=== PATIENT | male | born 1960 ===

== ENCOUNTER 2017-03-09 10:21 | Emergency (ER) | payer MEDICAID ==
[2017-03-09 10:27] VITALS: TEMP 97.6
--- NOTE | 2017-03-09 10:50 | C.PDOC ---
History Of Present Illness 56 y/o male presents to the ED with complains of back pain/sciatica exacerbation x3 days. Pain is at left lower back radiating to side, left thigh and calf; worse with positional changes. Pt has had pain for many years, not on chronic pain medications due to probation drug screening. Pt denies weakness, numbness, incontinence, or any other complaints. Pt requesting unknown shot "they gave me last time" at [place]. Chief Complaint (Nursing): Lower Extremity Problem/Injury History Per: Patient History/Exam Limitations: no limitations Onset/Duration Of Symptoms: Days, Intermittent Episodes Current Symptoms Are (Timing): Still Present Quality Of Discomfort: "Pain" Severity: Moderate Previous Symptoms: Chronic Pain Associated Symptoms: None Exacerbating Factor(s): Movement Recent travel outside of the [place]: No Past Medical History Reviewed: Historical Data, Nursing Documentation, Vital Signs Vital Signs: Last Vital Signs Temp 97.6 F 03/09/17 10:27 Pulse 87 03/09/17 11:49 Resp 18 03/09/17 11:49 BP 130/88 03/09/17 11:49 Pulse Ox 96 03/09/17 11:49 - Medical History PMH: Asthma Surgical History: Tonsillectomy - [facility] Procedures EXCISION OF RIGHT SPERMATIC CORD, OPEN APPROACH (07/11/16) REPAIR ABDOMINAL WALL, OPEN APPROACH (07/11/16) REPAIR RIGHT INGUINAL REGION, OPEN APPROACH (07/11/16) Family History: States: Unknown Family Hx - Social History Hx Tobacco Use: Yes Hx Alcohol Use: No Hx Substance Use: No - Immunization History Hx Tetanus Toxoid Vaccination: No Hx Influenza Vaccination: No Hx Pneumococcal Vaccination: No Review Of Systems Except As Marked, All Systems Reviewed And Found Negative. Genitourinary: Negative for: Incontinence Musculoskeletal: Positive for: Back Pain (left sided radiating to to left thigh and calf) Neurological: Negative for: Weakness, Numbness Physical Exam - Physical Exam Appears: Non-toxic, In Acute Distress (uncomfortable) Skin: Warm, Dry, No Rash Head: Atraumatic, Normacephalic Back: No Vertebral Tenderness, Decreased ROM, No Muscle Spasm, No Paraspinal Tenderness Extremity: Normal ROM Extremity: Bilateral: Atraumatic Neurological/Psych: Oriented x3, Normal Motor, Normal Sensation Gait: Steady ED Course And Treatment O2 Sat by Pulse Oximetry: 98 (room air) Pulse Ox Interpretation: Normal Progress - Re-Evaluation Re-evaluation Note: 03/09/17 10:45 NO PRIOR RECORD ON [facility] 03/09/17 10:58 [facility] REFERR[facility] INFO GIVEN - Data Reviewed Data Reviewed: Old records, Other Medical Decision Making Medical Decision Making: Prior records reviewed, pt received toradol at [place]. Pt provided [facility] physician letter, signed and given to patient. Pt advised of state law and [facility] policy regarding chronic pain management. Pt advised to see PMD and pain management for group home care. Disposition Counseled Patient/Family Regarding: Diagnosis, Need For Followup, Rx Given - Disposition Referrals: [facility] [Outside] [facility] [Outside] [facility] [Other] Disposition: HOME/ ROUTINE Disposition Time: 10:58 Condition: GOOD Prescriptions: Cyclobenzaprine [Flexeril] 10 mg PO TID #15 tab Lidocaine 5% [Lidoderm] 1 ea TD PRN PRN #10 patch PRN Reason: Pain, Moderate (4-7) Ibuprofen [Motrin] 600 mg PO Q6 #30 tab Gabapentin [Neurontin] 300 mg PO TID #30 cap Instructions: Chronic Pain (ED), Sciatica (ED) Forms: Work Excuse - Clinical Impression Clinical Impression: Chronic sciatica, Acute exacerbation of chronic low back pain - Scribe Statement The provider has reviewed the documentation as recorded by the Emmanuel garcias Provider Attestation: All medical record entries made by the Emmanuel were at my direction and personally dictated by me. I have reviewed the chart and agree that the record accurately reflects my personal performance of the history, physical exam, medical decision making, and the department course for this patient. I have also personally directed, reviewed, and agree with the discharge instructions and disposition.
[2017-03-09] MEDS ORDERED: Lidocaine 5% Patch TD STA (10:55)
[2017-03-09] MEDS ORDERED: Lidocaine 5% Patch TD ONE (11:06)
[2017-03-09 11:51] VITALS: BP 130/88; PULSE 87; RESP 18
[2017-03-11 07:28] VITALS: O2SAT 98
== END 2017-03-09 11:53 | disposition home or self-care (01) ==
LOC: EDBD → C.ER 10:21
DX: M54.42 Lumbago with sciatica, left side (principal)
CPT/HCPCS: 96372; 99284; J1885; J8540

== ENCOUNTER 2017-03-17 19:15 | Emergency (ER) | payer MEDICAID ==
[2017-03-17 19:33] VITALS: BP 137/88; PULSE 84; RESP 20; TEMP 98.3; O2SAT 97
[2017-03-17] MEDS ORDERED: Dexamethasone 4 mg/1 ml IM STA ×2 (19:51→20:08)
[2017-03-17] MEDS ORDERED: Lidocaine 5% Patch TD STA (19:53)
--- NOTE | 2017-03-17 19:56 | C.PDOC ---
History Of Present Illness 56 y.o male with history of chronic back pain complains of lower right back pain which radiates down the leg. 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 Denies any urinary or bowel incontinence, new numbness or weakness, abdominal pain, neck pain, chest pain, SOB. Patient was seen in ED last week and given Rx he states he was unable to get patches secondary to insurance and has yet to follow up with PMD. Patient is in [facility] and needs letter if given any narcotics. Time Seen by Provider: 03/17/17 19:40 Chief Complaint (Nursing): Lower Extremity Problem/Injury History Per: Patient History/Exam Limitations: no limitations Onset/Duration Of Symptoms: Other Current Symptoms Are (Timing): Still Present Quality Of Discomfort: "Pain" Severity: Moderate Pain Scale Rating Of: 4 Previous Symptoms: Chronic Pain Associated Symptoms: None Exacerbating Factor(s): Nothing Recent travel outside of the [place]: No Past Medical History Reviewed: Historical Data, Nursing Documentation, Vital Signs Vital Signs: Last Vital Signs Temp 98.3 F 03/17/17 19:31 Pulse 84 03/17/17 19:31 Resp 20 03/17/17 19:31 BP 137/88 03/17/17 19:31 Pulse Ox 97 03/17/17 20:17 - Medical History PMH: Asthma Surgical History: Tonsillectomy - [facility] Procedures EXCISION OF RIGHT SPERMATIC CORD, OPEN APPROACH (07/11/16) REPAIR ABDOMINAL WALL, OPEN APPROACH (07/11/16) REPAIR RIGHT INGUINAL REGION, OPEN APPROACH (07/11/16) Family History: States: Unknown Family Hx - Social History Hx Tobacco Use: Yes Hx Alcohol Use: No Hx Substance Use: No - Immunization History Hx Tetanus Toxoid Vaccination: No Hx Influenza Vaccination: No Hx Pneumococcal Vaccination: No Review Of Systems Except As Marked, All Systems Reviewed And Found Negative. Cardiovascular: Negative for: Chest Pain Respiratory: Negative for: Shortness of Breath Gastrointestinal: Negative for: Abdominal Pain Genitourinary: Negative for: Incontinence Musculoskeletal: Positive for: Back Pain. Negative for: Neck Pain Neurological: Negative for: Weakness, Numbness Physical Exam - Physical Exam Appears: Non-toxic, Other (uncomfortable; in pain) Skin: Warm, Dry Head: Atraumatic, Normacephalic Neck: Normal ROM, Supple Chest: Symmetrical Cardiovascular: Rhythm Regular Respiratory: Normal Breath Sounds, No Rales, No Rhonchi, No Wheezing Back: No CVA Tenderness, No Vertebral Tenderness, No Decreased ROM, Paraspinal Tenderness (paralumbar) Extremity: Normal ROM Neurological/Psych: Oriented x3, Normal Speech, Normal Cognition, Normal Motor, Normal Sensation Gait: Steady ED Course And Treatment O2 Sat by Pulse Oximetry: 97 (RA) Pulse Ox Interpretation: Normal Medical Decision Making Medical Decision Making: Impression: 56 y/o male with chronic back pain and acute flare up Plan: * Decadron * Lidoderm Prior record reviewed patient was seen last week 03/09 for similar symptoms and treated with Toradol in ED. Rx given for Flexeril, lidoderm, motrin and gabapentin No record on [facility] Progress: Decadron IM and Lidoderm patch applied in ED. Patient remained well and was laying comfortably on stretcher during ED evaluation. Fill out court form. Patient advised to call athletic coordinator service to assist with finding pain management or to follow up with PCP Dr Newman for chronic back pain. Explain the ED does not provide continued care for chronic pain. Patient was ambulatory with steady gait without assistance or severe pain. Disposition Counseled Patient/Family Regarding: Diagnosis, Need For Followup, Rx Given - Disposition Referrals: [facility] [Outside] [facility] [place] [Outside] Shaik Siddiqui MD [Staff Provider] - Disposition: HOME/ ROUTINE Disposition Time: 19:35 Condition: STABLE Additional Instructions: Please call athletic coordinator service for any assistance with finding spine doctor or pain management [phone]. Follow up with your primary medical doctor DR Siddiqui for further evaluation. Return to the emergency department at any time if symptoms persist or worsen. Prescriptions: Prednisone 50 mg PO DAILY #5 tablet Instructions: Lumbar Radiculopathy (ED) - POA Present On Arrival: None - Clinical Impression Clinical Impression: Acute exacerbation of chronic low back pain, Lumbar radiculopathy - PA / STRUCTURAL IRON ERECTOR / Resident Statement MD/DO has reviewed & agrees with the documentation as recorded. - Scribe Statement The provider has reviewed the documentation as recorded by the Scribe Mary Wright All medical record entries made by the Scribe were at my direction and personally dictated by me. I have reviewed the chart and agree that the record accurately reflects my personal performance of the history, physical exam, medical decision making, and the department course for this patient. I have also personally directed, reviewed, and agree with the discharge instructions and disposition.
[2017-03-17] MEDS ORDERED: Lidocaine 5% Patch TD ONE (20:03)
== END 2017-03-17 20:38 | disposition home or self-care (01) ==
LOC: EDBD → C.ER 19:15
DX: G89.29 Other chronic pain (principal); M54.5 Low back pain; M54.16 Radiculopathy, lumbar region
CPT/HCPCS: 96372; 99284; J1100

== ENCOUNTER 2017-11-06 09:09 | Inpatient (IN) | payer MEDICAID ==
--- NOTE | 2017-11-06 10:28 | C.PDOC ---
History Of Present Illness 57 year old male with PMHx of asthma presents, and ventral hernia presents to the ED for evaluation of abdominal pain. Patient states he was seen by who told him he had an abdominal wall hernia and was referred here for further evaluation and possible admission. Patient has an abdominal wall hernia that is tender to palpation. Patient denies fever, nausea, vomit, diarrhea, dysuria, hematuria, back pain. Time Seen by Provider: 11/06/17 09:46 Chief Complaint (Nursing): Medical Clearance History Per: Patient History/Exam Limitations: no limitations Onset/Duration Of Symptoms: Days Current Symptoms Are (Timing): Still Present Severity: Mild Reports Recently: Treated By A Physician (Dr. Anderson) Recent travel outside of the [place]: No Additional History Per: Patient Past Medical History Reviewed: Historical Data, Nursing Documentation, Vital Signs Vital Signs: Last Vital Signs Temp 97.8 F 11/06/17 09:18 Pulse 76 11/06/17 09:18 Resp 18 11/06/17 09:18 BP 116/79 11/06/17 09:18 Pulse Ox 96 11/06/17 11:37 - Medical History PMH: Asthma Denies: Chronic Kidney Disease Surgical History: Tonsillectomy - [facility] Procedures EXCISION OF RIGHT SPERMATIC CORD, OPEN APPROACH (07/11/16) REPAIR ABDOMINAL WALL, OPEN APPROACH (07/11/16) REPAIR RIGHT INGUINAL REGION, OPEN APPROACH (07/11/16) Family History: States: Unknown Family Hx - Social History Hx Tobacco Use: Yes Hx Alcohol Use: No Hx Substance Use: No - Immunization History Hx Tetanus Toxoid Vaccination: No Hx Influenza Vaccination: No Hx Pneumococcal Vaccination: No Review Of Systems Constitutional: Negative for: Fever, Chills Cardiovascular: Negative for: Chest Pain Respiratory: Negative for: Cough, Shortness of Breath Gastrointestinal: Positive for: Abdominal Pain. Negative for: Nausea, Vomiting Genitourinary: Negative for: Dysuria, Hematuria Musculoskeletal: Negative for: Back Pain Skin: Negative for: Rash Neurological: Negative for: Weakness, Numbness Physical Exam - Physical Exam Appears: Non-toxic, Other (Uncomfortable) Skin: Normal Color, Warm, Dry Head: Atraumatic, Normacephalic Nose: No Discharge, No Deformity Oral Mucosa: Moist Neck: Normal ROM, Supple Chest: Symmetrical Cardiovascular: Rhythm Regular, No Murmur Respiratory: Normal Breath Sounds, No Rales, No Rhonchi, No Wheezing Gastrointestinal/Abdominal: Soft, Tenderness (mid abdomen), No Distention, Hernia (abdominal wall, mid abdomen ) Extremity: Normal ROM, No Pedal Edema, No Calf Tenderness, No Deformity, No Swelling Neurological/Psych: Oriented x3, Normal Speech, Normal Cognition Gait: Steady ED Course And Treatment - Laboratory Results Result Diagrams: 11/06/17 10:40 11/06/17 10:40 O2 Sat by Pulse Oximetry: 96 (On RA) Pulse Ox Interpretation: Normal Medical Decision Making Medical Decision Making: Impression : 57 y/o male with abdominal wall hernia. Plan: * Blood work * CXR * IV fluids * EKG Dr. Anderson called and spoke with nurse in charge of patient, Dr. Anderson gave a verbal admission order for the patient. Disposition - Disposition Disposition: HOSPITALIZED Disposition Time: 11:36 Condition: STABLE - Clinical Impression Clinical Impression: Abdominal pain, Ventral hernia - Scribe Statement The provider has reviewed the documentation as recorded by the Scribe Dennys Osorio All medical record entries made by the Scribe were at my direction and personally dictated by me. I have reviewed the chart and agree that the record accurately reflects my personal performance of the history, physical exam, medical decision making, and the department course for this patient. I have also personally directed, reviewed, and agree with the discharge instructions and disposition. Decision To Admit - Pt Status Changed To: Hospital Disposition Of: Inpatient - Admit Certification Admit to Inpatient:: After my assessment, the patient will require hospitalization for at least two midnights. This is because of the severity of symptoms shown, intensity of services needed, and/or the medical risk in this patient being treated as an outpatient. - InPatient: Physician Admission Certification: I certify that this patient requires 2 or more midnights of care for the following reason:: needs surgery - . Bed Request Type: Regular Patient Diagnosis: Abdominal pain, Ventral hernia
[2017-11-06] MEDS: Sodium Chloride 0.9% 1,000 ML IV SCH ×2 (10:37→21:30)
[2017-11-06 10:47] LABS: BASO # 0.1 K/uL (0.0-0.2); BASO % 0.6 % (0.0-2.0); EOS # 0.3 K/uL (0.0-0.7); EOS % 3.5 % (0.0-4.0); HEMATOCRIT 45.7 % (35.0-51.0); LYMPH # 2.1 K/uL (1.0-4.3); LYMPH % 25.6 % (20.0-40.0); MEAN CELL VOLUME 92.5 fL (80.0-94.0); MEAN CORPUSCULAR HEMOGLOBIN 32.3 pg (27.0-31.0); MEAN CORPUSCULAR HGB CONC 34.9 g/dL (33.0-37.0); MEAN PLATELET VOLUME 10.1 fL (7.2-11.7); MONO # 0.6 K/uL (0.0-0.8); MONO % 7.5 % (0.0-10.0); NRBC % 0.1 % (0.0-2.0); RED CELL DISTRIBUTION WIDTH 13.5 % (11.5-14.5); WHITE BLOOD COUNT 8.2 K/uL (4.8-10.8)
[2017-11-06 11:00] LABS: BILIRUBIN,TOTAL 1.3 mg/dL (0.2-1.3); CALCIUM 8.2 mg/dl (8.6-10.4); GFR AFRICAN-AMERICAN > 60; GLUCOSE,RANDOM 93 mg/dL (75-110)
[2017-11-06 11:07] LABS: ALB/GLOB RATIO 1.5 (1.0-2.1); ALKALINE PHOSPHATASE 48 U/L (38-126); ALT/SGPT 25 U/L (21-72); AST/SGOT 32 U/L (17-59); BLOOD UREA NITROGEN 9 mg/dL (9-20); CARBON DIOXIDE 24 mmol/L (22-30); CHLORIDE 105 mmol/L (98-107); POTASSIUM 4.6 mmol/L (3.6-5.2); SODIUM 135 mmol/L (132-148); TOTAL PROTEIN 6.4 g/dL (6.3-8.3)
[2017-11-06] MEDS ORDERED: ceFAZolin IV 2 gm in Dextrose 2 GM/50 ML BAG IVPB ONE (12:17)
[2017-11-06] MEDS ORDERED: Midazolam 2 MG/2 ML VIAL ONE (12:34)
[2017-11-06] MEDS ORDERED: Lactated Ringer's 1,000 ML IV ONE (12:35)
[2017-11-06] MEDS ORDERED: Propofol 10 mg/ml Inj (20 ML) ONE ×2 (12:35→13:01)
[2017-11-06] MEDS ORDERED: Bupivacaine HCl 0.5% PF (10 ml) Inj ONE (12:45)
[2017-11-06] MEDS ORDERED: Succinylcholine Chloride 20 mg/ml Syr (5 ml) IV ONE (13:01)
[2017-11-06] MEDS: HYDROmorphone 0.5 mg/0.5 ml ISec IVP PRN ×2 (13:50→14:30)
--- NOTE | 2017-11-06 15:57 | RAD ---
HISTORY: SOB COMPARISON: Chest radiograph dated 07/11/2016. TECHNIQUE: Chest PA and lateral FINDINGS: LUNGS: No active pulmonary disease. PLEURA: No significant pleural effusion identified. No pneumothorax apparent. CARDIOVASCULAR: Normal. OSSEOUS STRUCTURES: No significant abnormalities. VISUALIZED UPPER ABDOMEN: Normal. OTHER FINDINGS: None. IMPRESSION: No active disease.
[2017-11-06] MEDS: Oxycodone/Acetaminophen 5/325 mg Tab PO PRN (20:03)
[2017-11-06 20:48] VITALS: RESP 20
[2017-11-06] MEDS: ceFAZolin 1,000 MG in Dextrose 5% In Water 50 ML IVPB SCH (21:34)
[2017-11-07 00:13] VITALS: O2SAT 95
[2017-11-07] MEDS: ceFAZolin 1,000 MG in Dextrose 5% In Water 50 ML IVPB SCH (05:17)
[2017-11-07] MEDS: Oxycodone/Acetaminophen 5/325 mg Tab PO PRN (05:23)
[2017-11-07] MEDS: Sodium Chloride 0.9% 1,000 ML IV SCH ×2 (05:27→06:32)
[2017-11-07 07:07] LABS: BASO % 0.5 % (0.0-2.0); EOS # 0.3 K/uL (0.0-0.7); EOS % 3.9 % (0.0-4.0); HEMATOCRIT 41.5 % (35.0-51.0); LYMPH # 2.3 K/uL (1.0-4.3); LYMPH % 28.2 % (20.0-40.0); MEAN CELL VOLUME 91.8 fL (80.0-94.0); MEAN CORPUSCULAR HEMOGLOBIN 32.6 pg (27.0-31.0); MEAN CORPUSCULAR HGB CONC 35.6 g/dL (33.0-37.0); MEAN PLATELET VOLUME 9.9 fL (7.2-11.7); MONO # 0.7 K/uL (0.0-0.8); RED CELL DISTRIBUTION WIDTH 13.5 % (11.5-14.5); WHITE BLOOD COUNT 8.3 K/uL (4.8-10.8)
[2017-11-07 07:38] LABS: ALB/GLOB RATIO 1.4 (1.0-2.1); ALKALINE PHOSPHATASE 58 U/L (38-126); ALT/SGPT 23 U/L (21-72); AST/SGOT 18 U/L (17-59); BILIRUBIN,TOTAL 0.8 mg/dL (0.2-1.3); BLOOD UREA NITROGEN 8 mg/dL (9-20); CALCIUM 7.9 mg/dl (8.6-10.4); CARBON DIOXIDE 26 mmol/L (22-30); CHLORIDE 103 mmol/L (98-107); GFR AFRICAN-AMERICAN > 60; GLUCOSE,RANDOM 91 mg/dL (75-110); POTASSIUM 3.9 mmol/L (3.6-5.2); SODIUM 134 mmol/L (132-148); TOTAL PROTEIN 5.6 g/dL (6.3-8.3)
[2017-11-07 07:40] VITALS: BP 110/74; PULSE 62; TEMP 98.2
== END 2017-11-07 12:02 | disposition home or self-care (01) | DRG 160 ==
LOC: C.ER 09:09 → C.9E 10:58 → C.3T 19:22
PROVIDERS: ADMIT Surgery; ATTEND Surgery
PROC: 0WQF0ZZ Repair Abdominal Wall, Open Approach (ICD-10-PCS; principal; 2017-11-06 15:00)
DX: K43.9 Ventral hernia without obstruction or gangrene (principal); J45.909 Unspecified asthma, uncomplicated

== ENCOUNTER 2018-02-09 17:33 | Emergency (ER) | payer SELFPAY ==
[2018-02-09 17:42] VITALS: BP 112/76; PULSE 85; RESP 18; TEMP 98; O2SAT 98
[2018-02-09] MEDS ORDERED: Hydrocodone/Acetaminophen 5 mg /300 mg Tab PO STA (18:08)
[2018-02-09] MEDS ORDERED: Tmp-Smz 800 mg-160 mg DS Tab PO STA (18:08)
--- NOTE | 2018-02-09 18:11 | C.PDOC ---
History Of Present Illness Patient presents to ED c/o right lower back pain, swelling for the past 3 days. As per , yesterday the area drained purulent discharge after she removed the bandaid. Patient denies fever, trauma. Time Seen by Provider: 02/09/18 18:00 Chief Complaint (Nursing): Abnormal Skin Integrity History Per: Patient, Family () History/Exam Limitations: no limitations Onset/Duration Of Symptoms: Days (3) Current Symptoms Are (Timing): Still Present Quality Of Symptoms: Painful, Swollen Severity: Moderate Past Medical History Reviewed: Historical Data, Nursing Documentation, Vital Signs Vital Signs: Last Vital Signs Temp 98 F 02/09/18 17:40 Pulse 85 02/09/18 17:40 Resp 18 02/09/18 17:40 BP 112/76 02/09/18 17:40 Pulse Ox 98 02/09/18 18:11 - Medical History PMH: Asthma, COPD Surgical History: Tonsillectomy - [facility] Procedures EXCISION OF RIGHT SPERMATIC CORD, OPEN APPROACH (07/11/16) REPAIR ABDOMINAL WALL, OPEN APPROACH (11/06/17) REPAIR RIGHT INGUINAL REGION, OPEN APPROACH (07/11/16) Family History: States: No Known Family Hx - Social History Hx Tobacco Use: Yes Hx Alcohol Use: No Hx Substance Use: No - Immunization History Hx Tetanus Toxoid Vaccination: No Hx Influenza Vaccination: No Hx Pneumococcal Vaccination: No Review Of Systems Except As Marked, All Systems Reviewed And Found Negative. Constitutional: Negative for: Fever, Chills Cardiovascular: Negative for: Chest Pain Respiratory: Negative for: Shortness of Breath Gastrointestinal: Negative for: Nausea, Vomiting, Abdominal Pain, Diarrhea Skin: Positive for: Other (right lower back abscess) Physical Exam - Physical Exam Appears: Well, Non-toxic, In Acute Distress (in mild pain ) Skin: Other (right lumbar area - approx 4-5cm abscess that is indurated with central dry pustule, no drainage, no fluctuance ) Oral Mucosa: Moist Cardiovascular: Rhythm Regular Respiratory: Normal Breath Sounds, No Rales, No Rhonchi, No Wheezing Neurological/Psych: Oriented x3 ED Course And Treatment O2 Sat by Pulse Oximetry: 98 (RA) Pulse Ox Interpretation: Normal Progress Note: Area of erythema traced with marker by me. Patient given PO Bactrim, Keflex and Vicodin. He was instructed to apply warm compresses to area and use medications as directed. He and understand he should return to ED if symptoms worsen. Otherwise, patient should follow up with PMD in 1-2 days. Disposition Counseled Patient/Family Regarding: Diagnosis, Need For Followup, Rx Given - Disposition Referrals: Shaik Siddiqui MD [Staff Provider] - Disposition: HOME/ ROUTINE Disposition Time: 18:25 Condition: STABLE Additional Instructions: FOLLOW UP WITH YOUR DOCTOR IN 1-2 DAYS USE MEDICATIONS DIRECTED APPLY WARM COMPRESSES TO AREA SEVERAL TIMES DAILY RETURN TO ER IF SYMPTOMS WORSEN Prescriptions: Cephalexin [Keflex] 500 mg PO BID #14 capsule Hydrocodone/Acetaminophen [Hydrocodone-Acetamin 5-325 mg] 1 each PO Q6 PRN #12 tablet PRN Reason: PAIN Naproxen 375 mg PO BID PRN #20 tablet PRN Reason: pain Sulfamethoxazole/Trimethoprim [Bactrim DS 800 mg-160 mg] 1 tab PO BID #14 tab Instructions: Skin Abscess Forms: [employer] (Greenlandic) Print Language: TAMAZIGHT - Clinical Impression Clinical Impression: Abscess of lower back
[2018-02-09] MEDS ORDERED: Tmp-Smz 800 mg-160 mg DS Tab ONE (18:20)
[2018-02-09] MEDS ORDERED: Hydrocodone/Acetaminophen 5 mg /300 mg Tab PO ONE (18:21)
== END 2018-02-09 18:52 | disposition home or self-care (01) ==
LOC: C.ER 17:33
DX: L02.212 Cutaneous abscess of back [any part, except buttock and flank] (principal); Z72.0 Tobacco use

== ENCOUNTER 2018-04-01 06:26 | Emergency (ER) | payer MEDICAID ==
[2018-04-01 06:44] VITALS: TEMP 97.7
[2018-04-01 06:58] LABS: BASO # 0.1 K/uL (0.0-0.2); BASO % 0.7 % (0.0-2.0); EOS # 0.4 K/uL (0.0-0.7); EOS % 4.7 % (0.0-4.0); HEMOGLOBIN 14.8 g/dL (12.0-18.0); LYMPH # 2.4 K/uL (1.0-4.3); LYMPH % 27.7 % (20.0-40.0); MEAN CELL VOLUME 91.6 fL (80.0-94.0); MEAN CORPUSCULAR HGB CONC 34.9 g/dL (33.0-37.0); MEAN PLATELET VOLUME 9.6 fL (7.2-11.7); MONO # 0.8 K/uL (0.0-0.8); MONO % 9.1 % (0.0-10.0); NEUT # 5.1 K/uL (1.8-7.0); NEUT % 57.8 % (50.0-75.0); NRBC % 0.1 % (0.0-2.0); RBC 4.64 Mil/uL (4.40-5.90); RED CELL DISTRIBUTION WIDTH 13.6 % (11.5-14.5); WHITE BLOOD COUNT 8.8 K/uL (4.8-10.8)
--- NOTE | 2018-04-01 07:06 | C.PDOC ---
History Of Present Illness 57-year-old male, PMHx includes COPD, presents to the emergency department with complaints of abdominal pain, nausea and non-bloody/non-bilious vomiting for the past two days. Patient is also complaining of chest tightness, shortness of breath, wheezing and headache. Patient denies diarrhea, dysuria, fever, or any other associated symptoms. No other complaints at this time. Time Seen by Provider: 04/01/18 07:00 Chief Complaint (Nursing): Chest Pain Past Medical History Reviewed: Historical Data ( ), Nursing Documentation, Vital Signs Vital Signs: Last Vital Signs Temp 97.7 F 04/01/18 09:54 Pulse 86 04/01/18 11:05 Resp 16 04/01/18 11:05 BP 105/65 04/01/18 11:05 Pulse Ox 96 04/01/18 11:05 - Medical History PMH: Asthma, COPD Surgical History: Tonsillectomy - [facility] Procedures EXCISION OF RIGHT SPERMATIC CORD, OPEN APPROACH (07/11/16) REPAIR ABDOMINAL WALL, OPEN APPROACH (11/06/17) REPAIR RIGHT INGUINAL REGION, OPEN APPROACH (07/11/16) Family History: States: No Known Family Hx - Social History Hx Tobacco Use: Yes Hx Alcohol Use: No Hx Substance Use: No - Immunization History Hx Tetanus Toxoid Vaccination: No Hx Influenza Vaccination: No Hx Pneumococcal Vaccination: No Review Of Systems Constitutional: Negative for: Fever Cardiovascular: Negative for: Chest Pain, Palpitations Respiratory: Positive for: Shortness of Breath, Wheezing Gastrointestinal: Positive for: Nausea, Vomiting, Abdominal Pain Musculoskeletal: Negative for: Back Pain Neurological: Positive for: Headache. Negative for: Weakness, Numbness, Dizziness Physical Exam - Physical Exam Appears: Non-toxic, No Acute Distress Skin: Normal Color, Warm, Dry, No Rash Head: Normacephalic Eye(s): bilateral: PERRL Nose: Normal Oral Mucosa: Moist Lips: Normal Appearing Neck: Normal ROM Cardiovascular: Rhythm Regular, No Murmur Respiratory: Normal Breath Sounds, No Accessory Muscle Use, Wheezing (B/L expiratory) Gastrointestinal/Abdominal: Tenderness (B/L lower quadrants. (-)McBurney's), No Guarding, No Rebound Extremity: Normal ROM, No Deformity, No Swelling Neurological/Psych: Oriented x3, Normal Speech ED Course And Treatment - Laboratory Results Result Diagrams: 04/01/18 06:53 04/01/18 06:53 ECG: Interpreted By Me, Viewed By Me, Discussed With Aerial Erector ECG Rhythm: Sinus Rhythm ECG Interpretation: No Acute Changes Rate From EC O2 Sat by Pulse Oximetry: 97 (RA) Pulse Ox Interpretation: Normal Progress Note: EKG, bloodwork, Chest X-Ray and peak flow ordered and reviewed. Patient treated with Toradol for pain, duonebs and solumedrol. Disposition Counseled Patient/Family Regarding: Studies Performed, Diagnosis, Need For Followup, Rx Given - Disposition Referrals: Shaik Siddiqui MD [Staff Provider] - Disposition: HOME/ ROUTINE Disposition Time: 11:40 Condition: STABLE Additional Instructions: DRINK PLENTY OF WATER USE PAIN MEDICATION NEEDED RETURN TO ER IMMEDIATELY IF YOUR SYMPTOMS WORSEN Prescriptions: Albuterol HFA [Ventolin HFA 90 mcg/actuation (8 g)] 0.09 mg IH Q4 PRN #1 puff PRN Reason: Wheezing traMADol [Ultram] 50 mg PO BID PRN #12 tab PRN Reason: pain Instructions: Acute Abdomen (Belly Pain), Adult (DC) Forms: [employer] (Niuean) Print Language: CYMRAES - Clinical Impression Clinical Impression: Elevated lipase, Elevated CK, COPD exacerbation - Scribe Statement The provider has reviewed the documentation as recorded by the Scribe (Suri Gonzales) All medical record entries made by the Scribe were at my direction and personally dictated by me. I have reviewed the chart and agree that the record accurately reflects my personal performance of the history, physical exam, medical decision making, and the department course for this patient. I have also personally directed, reviewed, and agree with the discharge instructions and disposition.
[2018-04-01] MEDS ORDERED: Albuterol-Ipratrop 3 mg / 0.5 (3 ml) UD INH STA (07:16)
[2018-04-01] MEDS ORDERED: Sodium Chloride 0.9% 1,000 ML IV ONE ×2 (07:16→10:50)
[2018-04-01] MEDS ORDERED: Albuterol 0.083% Inhal Sol (2.5 mg/3 mL) UD IH STA ×2 (07:17→10:38)
[2018-04-01 07:20] LABS: ALB/GLOB RATIO 1.4 (1.0-2.1); ALBUMIN 3.7 g/dL (3.5-5.0); ALT/SGPT 36 U/L (21-72); AST/SGOT 39 U/L (17-59); BLOOD UREA NITROGEN 11 mg/dL (9-20); CALCIUM 8.4 mg/dl (8.6-10.4); GFR AFRICAN-AMERICAN > 60; GFR NON-AFRICAN AMERICAN > 60; LIPASE 512 U/L (23-300)
[2018-04-01 07:23] LABS: CK-MB 4.08 ng/mL (0.0-3.38)
[2018-04-01] MEDS ORDERED: Sodium Chloride 0.9% 1,000 ML ONE ×2 (07:29→10:58)
[2018-04-01] MEDS ORDERED: Albuterol 0.083% Inhal Sol (2.5 mg/3 mL) UD ONE ×2 (07:29→10:58)
[2018-04-01] MEDS ORDERED: Albuterol-Ipratrop 3 mg / 0.5 (3 ml) UD ONE (07:29)
--- NOTE | 2018-04-01 09:34 | RAD ---
Chest x-ray single frontal view History: Shortness of breath. Comparison: 12/15/2017 Findings: Mild venous congestion. Mild patchy increased markings at the lung bases. Upper lobe granulomatous changes. Tortuous ectatic aorta. Calcification within the aorta. Degenerative changes in the spine and shoulders. Impression: Mild venous congestion. Mild patchy increased markings at the lung bases. Upper lobe granulomatous changes. Tortuous ectatic aorta. Calcification within the aorta.
--- NOTE | 2018-04-01 10:32 | US ---
HISTORY: ABD PAIN, ELEVATED LIPASE, EVAL GALLBLADDER COMPARISON: None. TECHNIQUE: Sonographic evaluation of the right upper quadrant of the abdomen. FINDINGS: LIVER: Measures 17.7 cm in length. Diffusely increased echogenicity of the liver parenchyma. No mass. Smooth contour. No biliary dilatation. Normal hepatopetal portal venous flow GALLBLADDER: Unremarkable. No gallstones. COMMON BILE DUCT: Measures 4 mm. No stones. No dilatation. PANCREAS: Unremarkable as visualized. No mass. No ductal dilatation. RIGHT KIDNEY: Measures 12.8 cm in length. Normal echogenicity. No calculus, mass, or hydronephrosis. AORTA: No aneurysmal dilatation. IVC: Unremarkable. OTHER FINDINGS: None . IMPRESSION: Fatty liver. No evidence of cholelithiasis or cholecystitis. Limited visualization of pancreas. No gross abnormality identified involving the pancreas.
[2018-04-01] MEDS ORDERED: Morphine 4 MG/ML VIAL ONE (10:58)
[2018-04-01 11:32] VITALS: RESP 16
[2018-04-01 11:59] VITALS: BP 101/71; PULSE 75; O2SAT 98
--- NOTE | 2018-04-04 17:23 | CARD ---
APPROVED REPORT EKG Measurement Heart [id number] <Conclusion> Normal sinus rhythm Normal ECG
== END 2018-04-01 11:58 | disposition home or self-care (01) ==
LOC: EDBD 06:26 → C.ER 06:26
DX: J44.1 Chronic obstructive pulmonary disease with (acute) exacerbation (principal); R74.8 Abnormal levels of other serum enzymes; R79.89 Other specified abnormal findings of blood chemistry
CPT/HCPCS: 71045; 76705; 80053; 82948; 83690; 84484; 85025; 93005; 94640; 96361; 96374; 96375; 99285; J1885; J2270; J2930; J7040

== ENCOUNTER 2018-08-21 14:52 | Emergency (ER) | payer MEDICAID ==
[2018-08-21 15:19] VITALS: TEMP 98.8
[2018-08-21] MEDS ORDERED: Sodium Chloride 0.9% 1,000 ML IV ONE (15:28)
[2018-08-21 15:56] LABS: BASO # 0.1 K/uL (0.0-0.2); BASO % 0.7 % (0.0-2.0); EOS # 0.2 K/uL (0.0-0.7); EOS % 3.2 % (0.0-4.0); HEMOGLOBIN 15.3 g/dL (12.0-18.0); LYMPH # 2.1 K/uL (1.0-4.3); LYMPH % 28.6 % (20.0-40.0); MEAN CELL VOLUME 92.1 fL (80.0-94.0); MEAN CORPUSCULAR HEMOGLOBIN 32.2 pg (27.0-31.0); MEAN PLATELET VOLUME 9.6 fL (7.2-11.7); MONO # 0.6 K/uL (0.0-0.8); MONO % 8.7 % (0.0-10.0); NEUT # 4.4 K/uL (1.8-7.0); NEUT % 58.8 % (50.0-75.0); NRBC % 0.1 % (0.0-2.0); RBC 4.76 Mil/uL (4.40-5.90); RED CELL DISTRIBUTION WIDTH 13.2 % (11.5-14.5); WHITE BLOOD COUNT 7.4 K/uL (4.8-10.8)
[2018-08-21 16:03] LABS: INR 1.1; PROTHROMBIN TIME 11.7 SECONDS (9.7-12.2)
[2018-08-21 16:17] LABS: ALB/GLOB RATIO 1.5 (1.0-2.1); ALBUMIN 3.9 g/dL (3.5-5.0); ALT/SGPT 37 U/L (21-72); AST/SGOT 20 U/L (17-59); BLOOD UREA NITROGEN 10 mg/dL (9-20); CALCIUM 9.1 mg/dl (8.6-10.4); GFR NON-AFRICAN AMERICAN > 60; HDL CHOLESTEROL 47 mg/dL (30-70)
[2018-08-21 16:24] VITALS: BP 108/69; PULSE 79; RESP 18; O2SAT 97
[2018-08-21 16:28] LABS: CK-MB 1.86 ng/mL (0.0-3.38); LDL CHOLESTEROL 75 mg/dL (0-129)
--- NOTE | 2018-08-21 16:33 | RAD ---
Date of service: 08/21/2018 HISTORY: chest pain COMPARISON: 04/01/2018 TECHNIQUE: Chest PA and lateral FINDINGS: LUNGS: No active pulmonary disease. PLEURA: No significant pleural effusion identified. No pneumothorax apparent. CARDIOVASCULAR: No radiographic findings to suggest acute or significant cardiovascular disease. OSSEOUS STRUCTURES: No significant abnormalities. VISUALIZED UPPER ABDOMEN: Normal. OTHER FINDINGS: None. IMPRESSION: No active disease. No significant interval change compared to the prior examination(s).
--- NOTE | 2018-08-21 16:50 | C.PDOC ---
History Of Present Illness 58 y/o male presents to the ER complaining of chest pain, shortness of breath, dizziness, and syncope. Patient states that he has been feeling unwell since yesterday and he might have food poisoning. Patient reports that he has been vomiting during most of the day. He went for a walk when all of the symptoms began and he passed out. He notes that he feels weak. Currently, patient denies having injuries from fall, CP, SOB, fever, and chills. Time Seen by Provider: 08/21/18 15:22 Chief Complaint (Nursing): Dizziness/Lightheaded History Per: Patient History/Exam Limitations: no limitations Onset/Duration Of Symptoms: Hrs Current Symptoms Are (Timing): Still Present Severity: Moderate Past Medical History Reviewed: Historical Data, Nursing Documentation, Vital Signs Vital Signs: Last Vital Signs Temp 98.8 F 08/21/18 15:09 Pulse 79 08/21/18 16:23 Resp 18 08/21/18 16:23 BP 108/69 08/21/18 16:23 Pulse Ox 97 08/21/18 16:23 - Medical History PMH: Asthma, COPD, Emphysema Denies: Chronic Kidney Disease Surgical History: Tonsillectomy - [facility] Procedures EXCISION OF RIGHT SPERMATIC CORD, OPEN APPROACH (07/11/16) REPAIR ABDOMINAL WALL, OPEN APPROACH (11/06/17) REPAIR RIGHT INGUINAL REGION, OPEN APPROACH (07/11/16) Family History: States: No Known Family Hx - Social History Hx Tobacco Use: Yes Hx Alcohol Use: No Hx Substance Use: No - Immunization History Hx Tetanus Toxoid Vaccination: No Hx Influenza Vaccination: No Hx Pneumococcal Vaccination: No Review Of Systems Except As Marked, All Systems Reviewed And Found Negative. Constitutional: Positive for: Weakness. Negative for: Fever, Chills Cardiovascular: Positive for: Chest Pain (currently resolved) Respiratory: Positive for: Shortness of Breath (currently resolved) Gastrointestinal: Positive for: Vomiting. Negative for: Nausea, Abdominal Pain Neurological: Positive for: Dizziness (currently resolved) Physical Exam - Physical Exam Appears: Non-toxic, No Acute Distress Skin: Normal Color, Warm, Dry Head: Atraumatic, Normacephalic, Other (no hematoma) Eye(s): bilateral: Normal Inspection Nose: Normal Oral Mucosa: Moist Neck: Supple Chest: Symmetrical Cardiovascular: Rhythm Regular Respiratory: Normal Breath Sounds, No Rales, No Rhonchi, No Wheezing Gastrointestinal/Abdominal: Normal Exam, Soft, No Tenderness, No Guarding, No Rebound Back: Paraspinal Tenderness (mild paralumbar tenderness) Extremity: Normal ROM Neurological/Psych: Oriented x3, Normal Speech Gait: Steady ED Course And Treatment - Laboratory Results Result Diagrams: 08/21/18 15:49 08/21/18 15:49 O2 Sat by Pulse Oximetry: 97 (RA) Pulse Ox Interpretation: Normal Medical Decision Making Medical Decision Making: Impression: Sciatica, Chest Discomfort, Syncope Plan: * Labs * UA * ECG * CXR * Aspirin PO * Reglan IV * IV Fluids Labs reviewed and only shows high triglycerides, no other acute abnormality and negative troponin. CXR shows no active disease. Patient remained alert well and in no distress. He reported feeling better. Based on history, and onset of all symptoms I recommend tele-obs admission for further evaluation, repetition of cardiac enzymes and consults. I discussed these reasons and rationale for admission but the patient declined and does not want to stay in the hospital. He states he has an appointment with his PMD next week and wishes to be discharged. This action is against my medical advice to the patient and the decision was made with informed refusal. The risks of leaving were explained to the patient and family and include, but are not limited to, worsening of known or currently unknown conditions, ACS, permanent disability and from undiagnosed or untreated conditions. The patient has the capacity to make this informed decision and understands the clinical situation and my explanation of the risks of leaving. The patient voluntarily accepts these risks and a signed AMA form documenting our conversation was obtained Disposition Counseled Patient/Family Regarding: Diagnosis, Need For Followup - Disposition Disposition: AGAINST MEDICAL ADVICE Disposition Time: 16:48 Condition: STABLE Additional Instructions: It is important that you follow up with your primary doctor or manager language in timely manner Return to the emergency department at any time if symptoms persist or worsen. 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 - Scribe Statement The provider has reviewed the documentation as recorded by the Scribe Andie Bailey
--- NOTE | 2018-08-25 11:12 | CARD ---
APPROVED REPORT Date of service: 08/21/2018 EKG Measurement Heart [id number] <Conclusion> Normal sinus rhythm Normal ECG
== END 2018-08-21 17:02 | disposition left against medical advice (07) ==
LOC: C.ER 14:52
DX: R07.89 Other chest pain (principal); R55 Syncope and collapse; R11.10 Vomiting, unspecified; M54.30 Sciatica, unspecified side
CPT/HCPCS: 71046; 80053; 80061; 84484; 85025; 85610; 85730; 93005; 96365; 99285; J2765; J7030

== ENCOUNTER 2018-08-30 14:39 | Emergency (ER) | payer MEDICAID ==
[2018-08-30 15:05] VITALS: RESP 18; O2SAT 97
[2018-08-30] MEDS ORDERED: Lidocaine 5% Patch TD STA (16:12)
--- NOTE | 2018-08-30 16:30 | C.PDOC ---
History Of Present Illness 58 year old male presents to the ED complaining of left lower back pain since yesterday. Pain is nonradiating to the leg. Reports he took 400 mg Motrin with no relief. Notes pain feels similar to prior sciatic presentation. Denies any numbness, tingling, weakness, or incontinence. no saddle anesthesia. Time Seen by Provider: 08/30/18 15:24 Chief Complaint (Nursing): Back Pain History Per: Patient History/Exam Limitations: no limitations Onset/Duration Of Symptoms: Days Current Symptoms Are (Timing): Still Present Quality Of Discomfort: "Pain" Previous Symptoms: Back Pain Associated Symptoms: None Past Medical History Reviewed: Historical Data, Nursing Documentation, Vital Signs Vital Signs: Last Vital Signs Temp 99.1 F 08/30/18 15:05 Pulse 82 08/30/18 15:05 Resp 18 08/30/18 15:05 BP 129/73 08/30/18 15:05 Pulse Ox 97 08/30/18 15:05 - Medical History PMH: Asthma, COPD, Emphysema Denies: Chronic Kidney Disease Surgical History: Tonsillectomy - [facility] Procedures EXCISION OF RIGHT SPERMATIC CORD, OPEN APPROACH (07/11/16) REPAIR ABDOMINAL WALL, OPEN APPROACH (11/06/17) REPAIR RIGHT INGUINAL REGION, OPEN APPROACH (07/11/16) Family History: States: No Known Family Hx - Social History Hx Tobacco Use: Yes Hx Alcohol Use: No Hx Substance Use: No - Immunization History Hx Tetanus Toxoid Vaccination: No Hx Influenza Vaccination: No Hx Pneumococcal Vaccination: No Review Of Systems Musculoskeletal: Positive for: Back Pain Neurological: Negative for: Weakness, Numbness Physical Exam - Physical Exam Appears: Non-toxic Skin: Warm, Dry Head: Normacephalic Eye(s): bilateral: Normal Inspection Cardiovascular: Rhythm Regular Respiratory: Normal Breath Sounds, No Rales, No Rhonchi, No Wheezing Gastrointestinal/Abdominal: Soft, No Tenderness Back: Other (left lumbar spine tenderness) Extremity: Normal ROM Extremity: Bilateral: Atraumatic Neurological/Psych: Oriented x3, Normal Speech Gait: Steady ED Course And Treatment O2 Sat by Pulse Oximetry: 97 (RA) Pulse Ox Interpretation: Normal Medical Decision Making Medical Decision Making: pt feels much better after medication, d/c home with nsaids and flexeril Disposition Counseled Patient/Family Regarding: Studies Performed, Diagnosis, Need For Followup, Rx Given - Disposition Referrals: Shaik Siddiqui MD [Staff Provider] - Disposition: HOME/ ROUTINE Disposition Time: 17:04 Condition: IMPROVED Additional Instructions: Avoid heavy lifting. Warm compresses to painful area. Take napoxen as prescribed with food. Muscle relaxant up to three times a day, makes you sleepy.No driving, working or operating machinery with this. Take at bedtime only if working or driving in daytime. Follow up with Dr Rodriguez next week. 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 - Scribe Statement The provider has reviewed the documentation as recorded by the Scribe Etelvina Cohen All medical record entries made by the Tinoibcecilia were at my direction and personally dictated by me. I have reviewed the chart and agree that the record accurately reflects my personal performance of the history, physical exam, medical decision making, and the department course for this patient. I have also personally directed, reviewed, and agree with the discharge instructions and disposition.
[2018-08-30] MEDS ORDERED: Lidocaine 5% Patch TD ONE (16:32)
[2018-08-30 17:22] VITALS: BP 109/75; PULSE 79; TEMP 98.1
== END 2018-08-30 17:21 | disposition home or self-care (01) ==
LOC: C.ER 14:39
DX: S39.012A Strain of muscle, fascia and tendon of lower back, initial encounter (principal); X58.XXXA Exposure to other specified factors, initial encounter; Z72.0 Tobacco use
CPT/HCPCS: 96372; 99284; J1885